=== PATIENT | female | born 1935 | race Caucasian/White ===

== ENCOUNTER 2018-05-19 18:01 | Inpatient (IN) | payer OTHER, MEDICAID ==
[~2018-05-19] VITALS: Ht 167.6 cm; Wt 60.8 kg
[2018-05-19] MEDS ORDERED: NACL 0.9% 1,000 ML IV ONE (18:03)
[2018-05-19 18:10] VITALS: BP_SYST 146
[2018-05-19 18:43] LABS: BASOPHILS % (AUTO) 0.7 % (0.0-2.0); EOSINOPHILS # (AUTO) 0.1 K/uL (0.0-0.4); EOSINOPHILS % (AUTO) 1.3 % (0.0-4.0); HEMATOCRIT 36.5 % (36-48); HEMOGLOBIN 11.9 g/dL (12.0-16.0); LYMPHOCYTES # (AUTO) 1.7 K/uL (1.0-5.5); LYMPHOCYTES % (AUTO) 28.2 % (20.5-51.5); MEAN CORPUSCULAR HEMOGLOBIN 28 pg (27-31); MEAN CORPUSCULAR HGB CONC 33 % (32-36); MEAN CORPUSCULAR VOLUME 85 fL (79.0-98.0); MONOCYTES # (AUTO) 0.6 K/uL (0.0-1.0); MONOCYTES % (AUTO) 9.4 % (1.7-9.3); NEUTROPHILS # (AUTO) 3.7 K/uL (1.8-7.7); NEUTROPHILS % (AUTO) 60.4 % (40.0-70.0); PLATELET COUNT (AUTO) 244 K/uL (130-430); RED CELL DISTRIBUTION WIDTH 15.7 % (9.0-15.0); WHITE BLOOD COUNT (AUTO) 6.2 K/uL (4.8-10.8)
[2018-05-19 18:53] LABS: PROTHROMBIN TIME 9.9 SECS (9.5-12.5)
[2018-05-19 19:12] LABS: ANION GAP 6 (5-15); CALCIUM 9.1 mg/dL (8.4-11.0); CHLORIDE 104 mmol/L (98-107); CREATININE 1.97 mg/dL (0.55-1.30); GLUCOSE 113 mg/dL (70-99); POTASSIUM 4.6 mmol/L (3.5-5.1); SODIUM SERUM 137 mmol/L (136-145); UREA NITROGEN, BLOOD 39 mg/dL (8-21)
[2018-05-19 19:18] LABS: ALANINE AMINOTRANSFERASE 17 U/L (12-78); ALBUMIN 3.3 g/dL (3.4-4.8); AMYLASE 143 U/L (0-100); ASPARTATE AMINOTRANSFERASE 14 U/L (10-37); LIPASE 288 U/L (73-393); TOTAL BILIRUBIN 0.5 mg/dL (0.0-1.0)
[2018-05-19 19:25] LABS: BILIRUBIN,URINE NEGATIVE (NEGATIVE); BLOOD, URINE NEGATIVE (NEGATIVE); CLARITY/URINE CLEAR (CLEAR); COLOR,URINE YELLOW (YELLOW); GLUCOSE,URINE NEGATIVE (NEGATIVE); KETONES,URINE NEGATIVE (NEGATIVE); NITRITE, URINE POSITIVE (NEGATIVE); PH,URINE 5.5 (5.0-8.0); PROTEIN URINE NEGATIVE (NEGATIVE); UROBILINOGEN,URINE 0.2 (0.2-1.0)
[2018-05-19 19:32] LABS: LEUKOCYTE ESTERASE ,URINE TRACE (NEGATIVE)
[2018-05-19 19:33] LABS: BACTERIA,URINE MODERATE /HPF (None Seen); RBC,URINE NONE SEEN /HPF (0-3)
[2018-05-19 19:34] LABS: MUCUS,URINE None Seen /LPF (None Seen)
[2018-05-19] MEDS ORDERED: LEVOFLOXACIN 500 MG/D5W 100 ML IV ONE (19:45)
[2018-05-19] MEDS ORDERED: QUET25TA34 PO (20:55)
[2018-05-19] MEDS ORDERED: MEMA5TAB15 PO (20:55)
[2018-05-19] MEDS ORDERED: MULT-262 PO (20:55)
[2018-05-19] MEDS ORDERED: LISI10TA PO (20:55)
[2018-05-19] MEDS ORDERED: REM15 PO (20:55)
[2018-05-19] MEDS ORDERED: ACETAMINOPHEN 325 MG TABLET PO PRN (21:30)
[2018-05-19] MEDS ORDERED: TEMAZEPAM 15 MG CAPSULE PO PRN (21:30)
[2018-05-19 22:00] VITALS: BP_SYST 152
[2018-05-20 00:46] VITALS: BP_SYST 153
[2018-05-20] MEDS: D5/0.45 NS 1,000 ML IV SCH ×2 (04:50→12:05)
[2018-05-20 07:34] LABS: ALANINE AMINOTRANSFERASE 13 U/L (12-78); ALBUMIN 2.6 g/dL (3.4-4.8); ANION GAP 6 (5-15); ASPARTATE AMINOTRANSFERASE 13 U/L (10-37); CALCIUM 8.7 mg/dL (8.4-11.0); CHLORIDE 108 mmol/L (98-107); CREATININE 1.45 mg/dL (0.55-1.30); GLUCOSE 86 mg/dL (70-99); POTASSIUM 4.1 mmol/L (3.5-5.1); SODIUM SERUM 139 mmol/L (136-145); TOTAL BILIRUBIN 0.6 mg/dL (0.0-1.0); UREA NITROGEN, BLOOD 32 mg/dL (8-21)
[2018-05-20 08:40] VITALS: BP_SYST 119
[2018-05-20] MEDS ORDERED: MEMANTINE HCL 5 MG TABLET PO SCH (09:00)
[2018-05-20] MEDS ORDERED: LISINOPRIL 10 MG TABLET (PRINIVIL) PO SCH (09:00)
[2018-05-20] MEDS ORDERED: MULTIVITAMINS TAB 1 TABLET PO SCH (09:00)
[2018-05-20 09:34] LABS: HEMATOCRIT 32.3 % (36-48); HEMOGLOBIN 10.7 g/dL (12.0-16.0); MEAN CORPUSCULAR HEMOGLOBIN 28 pg (27-31); MEAN CORPUSCULAR HGB CONC 33 % (32-36); MEAN CORPUSCULAR VOLUME 84 fL (79.0-98.0); RED BLOOD CELL COUNT(AUTO) 3.85 MIL/uL (4.2-6.2); WHITE BLOOD COUNT (AUTO) 5.3 K/uL (4.8-10.8)
[2018-05-20 09:35] LABS: BASOPHILS % (AUTO) 0.8 % (0.0-2.0); EOSINOPHILS # (AUTO) 0.1 K/uL (0.0-0.4); EOSINOPHILS % (AUTO) 2.8 % (0.0-4.0); LYMPHOCYTES # (AUTO) 1.7 K/uL (1.0-5.5); LYMPHOCYTES % (AUTO) 31.1 % (20.5-51.5); MONOCYTES # (AUTO) 0.5 K/uL (0.0-1.0); NEUTROPHILS # (AUTO) 2.9 K/uL (1.8-7.7); NEUTROPHILS % (AUTO) 55.3 % (40.0-70.0); PLATELET COUNT (AUTO) 234 K/uL (130-430); RED CELL DISTRIBUTION WIDTH 15.3 % (9.0-15.0)
[2018-05-20 11:27] VITALS: BP_SYST 129
[2018-05-20 13:58] VITALS: BP_SYST 129
[2018-05-20] MEDS ORDERED: QUEtiapine FUMARATE 25 MG TABLET PO SCH (21:00)
[2018-05-20] MEDS ORDERED: MIRTAZAPINE 15 MG TABLET PO SCH (21:00)
[2018-05-21] MEDS ORDERED: LEVOFLOXACIN 500 MG/D5W 100 ML IV SCH (20:00)
== END 2018-05-20 16:45 | disposition home or self-care (01) | DRG 682 ==
LOC: SED 18:01 → SMU 21:29
PROVIDERS: ADMIT Family Medicine; ATTEND Family Medicine
DX: N17.9 Acute kidney failure, unspecified (principal); G92 Toxic encephalopathy; N39.0 Urinary tract infection, site not specified; R55 Syncope and collapse; F02.80 Dementia in other diseases classified elsewhere, unspecified severity, without behavioral disturbance, psychotic disturbance, mood disturbance, and anxiety; G30.9 Alzheimer's disease, unspecified; I12.9 Hypertensive chronic kidney disease with stage 1 through stage 4 chronic kidney disease, or unspecified chronic kidney disease; N18.9 Chronic kidney disease, unspecified; R32 Unspecified urinary incontinence; Z88.0 Allergy status to penicillin; Z88.6 Allergy status to analgesic agent
CPT/HCPCS: 36415; 70450-TC; 71045; 80053; 81000-TC; 82150-TC; 82550-TC; 83605; 83690-TC; 84484; 85025; 85610-TC; 85730-TC; 86710; 87040-TC; 87086; 93005; 93880; 96361; 96365; 99285; J1956

== ENCOUNTER 2018-12-15 19:06 | Emergency (ER) | payer OTHER, MEDICAID ==
[~2018-12-15] VITALS: Ht 167.6 cm; Wt 65.8 kg
[~2018-12-15 19:06] MED LIST: LISI10TA PO; MEMA5TAB15 PO; MULT-262 PO; QUET25TA34 PO; REM15 PO
[2018-12-15 19:40] VITALS: BP_SYST 143
[2018-12-15 20:39] LABS: BASOPHILS % (AUTO) 0.4 % (0.0-2.0); EOSINOPHILS # (AUTO) 0.1 K/uL (0.0-0.4); EOSINOPHILS % (AUTO) 1.4 % (0.0-4.0); HEMATOCRIT 38.3 % (36-48); HEMOGLOBIN 12.8 g/dL (12.0-16.0); LYMPHOCYTES # (AUTO) 1.6 K/uL (1.0-5.5); LYMPHOCYTES % (AUTO) 20.1 % (20.5-51.5); MEAN CORPUSCULAR HEMOGLOBIN 29 pg (27-31); MEAN CORPUSCULAR HGB CONC 33 % (32-36); MEAN CORPUSCULAR VOLUME 86 fL (79.0-98.0); MONOCYTES # (AUTO) 0.5 K/uL (0.0-1.0); MONOCYTES % (AUTO) 6.7 % (1.7-9.3); NEUTROPHILS # (AUTO) 5.7 K/uL (1.8-7.7); NEUTROPHILS % (AUTO) 71.4 % (40.0-70.0); PLATELET COUNT (AUTO) 248 K/uL (130-430); RED BLOOD CELL COUNT(AUTO) 4.45 MIL/uL (4.2-6.2); RED CELL DISTRIBUTION WIDTH 15.2 % (9.0-15.0); WHITE BLOOD COUNT (AUTO) 7.9 K/uL (4.8-10.8)
[2018-12-15 20:44] LABS: CALCIUM 9.9 mg/dL (8.4-11.0); GLUCOSE 122 mg/dL (70-99); UREA NITROGEN, BLOOD 57 mg/dL (8-21)
[2018-12-15 20:45] LABS: PROTHROMBIN TIME 10.3 SECS (9.5-12.5)
[2018-12-15 20:53] LABS: ANION GAP 8 (5-15); CHLORIDE 105 mmol/L (98-107); SODIUM SERUM 138 mmol/L (136-145)
[2018-12-15 21:00] LABS: ALANINE AMINOTRANSFERASE 13 U/L (12-78); ALBUMIN 3.4 g/dL (3.4-4.8); ASPARTATE AMINOTRANSFERASE 16 U/L (10-37); FREE T4 (FREE THYROXINE) 1.2 ng/dl (0.8-1.5); TOTAL BILIRUBIN 0.7 mg/dL (0.0-1.0)
[2018-12-15 21:01] LABS: ALCOHOL, BLOOD < 3 mg/dL (<10)
[2018-12-15 22:58] LABS: BILIRUBIN,URINE NEGATIVE (NEGATIVE); BLOOD, URINE NEGATIVE (NEGATIVE); CLARITY/URINE CLEAR (CLEAR); COLOR,URINE YELLOW (YELLOW); GLUCOSE,URINE NEGATIVE (NEGATIVE); KETONES,URINE NEGATIVE (NEGATIVE); LEUKOCYTE ESTERASE ,URINE NEGATIVE (NEGATIVE); NITRITE, URINE NEGATIVE (NEGATIVE); PH,URINE 5.5 (5.0-8.0); PROTEIN URINE NEGATIVE (NEGATIVE); UROBILINOGEN,URINE 0.2 (0.2-1.0)
[2018-12-15 23:07] LABS: BARBITURATE, URINE NEGATIVE (NEG <=200); BENZODIAZEPINE, URINE NEGATIVE (NEG <=150); CANNABINOID, URINE NEGATIVE (NEG <=50); COCAINE, URINE NEGATIVE (NEG <=150); METHAMPHETAMINES SCREEN,URINE NEGATIVE (NEG <=500); OPIATE, URINE NEGATIVE (NEG <=100); PHENCYCLIDINE SCREEN,URINE NEGATIVE (NEG <=25); UR TRICYCLIC ANTIDEPRESSANTS POSITIVE (NEG <=300); URINE AMPHETAMINE NEGATIVE (NEG <=500); URINE METHADONE NEGATIVE (NEG <=200); URINE OXYCODONE SCREEN NEGATIVE (NEG <=100); URINE PROPOXYPHENE SCREEN NEGATIVE (NEG <=300)
[2018-12-15 23:57] VITALS: BP_SYST 143
== END 2018-12-15 23:57 | disposition home or self-care (01) ==
LOC: SED 19:06
DX: I12.9 Hypertensive chronic kidney disease with stage 1 through stage 4 chronic kidney disease, or unspecified chronic kidney disease (principal); N18.9 Chronic kidney disease, unspecified; Z79.899 Other long term (current) drug therapy; Z88.0 Allergy status to penicillin
CPT/HCPCS: 36415; 80053; 80307; 81003; 82550; 83605; 83880; 84439; 84443; 84484; 85025; 85610; 85730; 87040; 87086; 93005; 99284; G0482

== ENCOUNTER 2018-12-25 17:46 | Inpatient (IN) | payer OTHER, MEDICAID ==
[~2018-12-25] VITALS: Ht 165.1 cm; Wt 63.5 kg
[2018-12-25 17:52] VITALS: BP_SYST 153
[2018-12-25] MEDS ORDERED: NS 500 ML IV ONE (18:00)
[2018-12-25 19:00] LABS: BASOPHILS % (AUTO) 0.8 % (0.0-2.0); EOSINOPHILS # (AUTO) 0.2 K/uL (0.0-0.4); EOSINOPHILS % (AUTO) 2.7 % (0.0-4.0); HEMATOCRIT 36.6 % (36-48); HEMOGLOBIN 12.1 g/dL (12.0-16.0); LYMPHOCYTES # (AUTO) 1.8 K/uL (1.0-5.5); LYMPHOCYTES % (AUTO) 28.4 % (20.5-51.5); MEAN CORPUSCULAR HEMOGLOBIN 29 pg (27-31); MEAN CORPUSCULAR HGB CONC 33 % (32-36); MEAN CORPUSCULAR VOLUME 86 fL (79.0-98.0); MONOCYTES # (AUTO) 0.4 K/uL (0.0-1.0); MONOCYTES % (AUTO) 6.8 % (1.7-9.3); NEUTROPHILS # (AUTO) 3.8 K/uL (1.8-7.7); NEUTROPHILS % (AUTO) 61.3 % (40.0-70.0); PLATELET COUNT (AUTO) 226 K/uL (130-430); RED BLOOD CELL COUNT(AUTO) 4.27 MIL/uL (4.2-6.2); RED CELL DISTRIBUTION WIDTH 15.1 % (9.0-15.0); WHITE BLOOD COUNT (AUTO) 6.2 K/uL (4.8-10.8)
[2018-12-25 19:27] LABS: ALANINE AMINOTRANSFERASE 12 U/L (12-78); ALBUMIN 3.1 g/dL (3.4-4.8); ANION GAP 5 (5-15); ASPARTATE AMINOTRANSFERASE 15 U/L (10-37); CALCIUM 9.2 mg/dL (8.4-11.0); CHLORIDE 103 mmol/L (98-107); CREATININE 1.89 mg/dL (0.55-1.30); GLUCOSE 102 mg/dL (70-99); POTASSIUM 4.2 mmol/L (3.5-5.1); SODIUM SERUM 135 mmol/L (136-145); TOTAL BILIRUBIN 0.5 mg/dL (0.0-1.0); UREA NITROGEN, BLOOD 43 mg/dL (8-21)
[2018-12-25 20:00] LABS: BILIRUBIN,URINE NEGATIVE (NEGATIVE); CLARITY/URINE CLEAR (CLEAR); COLOR,URINE YELLOW (YELLOW); GLUCOSE,URINE NEGATIVE (NEGATIVE); KETONES,URINE NEGATIVE (NEGATIVE); LEUKOCYTE ESTERASE ,URINE 2+ (NEGATIVE); NITRITE, URINE NEGATIVE (NEGATIVE); PH,URINE 6.5 (5.0-8.0); PROTEIN URINE NEGATIVE (NEGATIVE); UROBILINOGEN,URINE 0.2 (0.2-1.0)
[2018-12-25 20:05] LABS: BLOOD, URINE TRACE (NEGATIVE)
[2018-12-25 20:15] LABS: BACTERIA,URINE FEW /HPF (None Seen); RBC,URINE 0-3 /HPF (0-3)
[2018-12-25 20:16] LABS: MUCUS,URINE 1+ /LPF (None Seen)
[2018-12-25] MEDS ORDERED: NITROFURANTOIN MONOHYD/M-CRYST 100 MG CAPSULE PO ONE (20:30)
[2018-12-25] MEDS ORDERED: LOSA1TAB37 PO (20:53)
[2018-12-25] MEDS ORDERED: ACET325C6 PO (20:53)
[2018-12-25] MEDS ORDERED: TRAM-350 PO (20:53)
[2018-12-25] MEDS ORDERED: cloNIDine HCL 0.1 MG TABLET PO PRN (22:00)
[2018-12-25] MEDS ORDERED: QUEtiapine FUMARATE 25 MG TABLET PO ONE (22:00)
[2018-12-25 22:17] VITALS: BP_SYST 183
[2018-12-25] MEDS: NACL 0.9% 1,000 ML IV SCH (22:19)
[2018-12-25] MEDS: QUEtiapine FUMARATE 25 MG TABLET PO SCH (22:43)
[2018-12-26 03:42] VITALS: BP_SYST 137
[2018-12-26 05:56] LABS: ALANINE AMINOTRANSFERASE 18 U/L (12-78); ALBUMIN 2.8 g/dL (3.4-4.8); ASPARTATE AMINOTRANSFERASE 12 U/L (10-37); CALCIUM 8.6 mg/dL (8.4-11.0); CHLORIDE 108 mmol/L (98-107); CHOLESTEROL 183 mg/dL (<200); CREATININE 1.84 mg/dL (0.55-1.30); GLUCOSE 95 mg/dL (70-99); HDL CHOLESTEROL 48 mg/dL (>55); LDL CHOLESTEROL 116 mg/dL (<100); PHOSPHORUS 3.8 mg/dL (2.7-4.5); SODIUM SERUM 137 mmol/L (136-145); THYROID STIMULATING HORMONE 0.26 uIu/mL (0.34-4.82); TOTAL BILIRUBIN 0.6 mg/dL (0.0-1.0); TRIGLYCERIDES 56 mg/dL (30-150); UREA NITROGEN, BLOOD 39 mg/dL (8-21)
[2018-12-26 06:15] LABS: BASOPHILS # (AUTO) 0.1 K/uL (0.0-0.2); BASOPHILS % (AUTO) 0.8 % (0.0-2.0); EOSINOPHILS # (AUTO) 0.1 K/uL (0.0-0.4); HEMATOCRIT 31.4 % (36-48); HEMOGLOBIN 10.5 g/dL (12.0-16.0); LYMPHOCYTES # (AUTO) 1.9 K/uL (1.0-5.5); LYMPHOCYTES % (AUTO) 28.3 % (20.5-51.5); MEAN CORPUSCULAR HEMOGLOBIN 29 pg (27-31); MEAN CORPUSCULAR HGB CONC 34 % (32-36); MEAN CORPUSCULAR VOLUME 86 fL (79.0-98.0); MONOCYTES # (AUTO) 0.6 K/uL (0.0-1.0); MONOCYTES % (AUTO) 8.3 % (1.7-9.3); NEUTROPHILS # (AUTO) 4.1 K/uL (1.8-7.7); NEUTROPHILS % (AUTO) 60.6 % (40.0-70.0); PLATELET COUNT (AUTO) 199 K/uL (130-430); RED BLOOD CELL COUNT(AUTO) 3.64 MIL/uL (4.2-6.2); RED CELL DISTRIBUTION WIDTH 14.9 % (9.0-15.0); WHITE BLOOD COUNT (AUTO) 6.8 K/uL (4.8-10.8)
[2018-12-26 06:19] LABS: ANION GAP < 3 (5-15); FREE T4 (FREE THYROXINE) 1.4 ng/dL (0.6-1.6)
[2018-12-26] MEDS ORDERED: ACETAMINOPHEN 500 MG TABLET PO PRN (08:00)
[2018-12-26 08:15] VITALS: BP_SYST 131
[2018-12-26] MEDS: amLODIPine BESYLATE 5 MG TABLET PO SCH (09:43)
[2018-12-26] MEDS: LEVOFLOXACIN 250 MG/D5W 50 ML IV SCH (09:43)
[2018-12-26 11:46] LABS: TOTAL IRON BIND. CAPACITY 189 ug/dL (250-450)
[2018-12-26 12:38] VITALS: BP_SYST 115
[2018-12-26 14:59] VITALS: BP_SYST 93
[2018-12-26] MEDS: QUEtiapine FUMARATE 25 MG TABLET PO SCH (17:50)
[2018-12-26] MEDS: NACL 0.9% 1,000 ML IV SCH (20:37)
[2018-12-26 20:38] VITALS: BP_SYST 142
[2018-12-27 00:40] VITALS: BP_SYST 137
[2018-12-27] MEDS: NACL 0.9% 1,000 ML IV SCH (01:09)
[2018-12-27 07:19] LABS: BASOPHILS % (AUTO) 0.6 % (0.0-2.0); EOSINOPHILS # (AUTO) 0.2 K/uL (0.0-0.4); EOSINOPHILS % (AUTO) 2.9 % (0.0-4.0); HEMATOCRIT 34.2 % (36-48); HEMOGLOBIN 11.3 g/dL (12.0-16.0); LYMPHOCYTES # (AUTO) 1.6 K/uL (1.0-5.5); LYMPHOCYTES % (AUTO) 24.4 % (20.5-51.5); MEAN CORPUSCULAR HEMOGLOBIN 28 pg (27-31); MEAN CORPUSCULAR HGB CONC 33 % (32-36); MEAN CORPUSCULAR VOLUME 86 fL (79.0-98.0); MONOCYTES # (AUTO) 0.6 K/uL (0.0-1.0); MONOCYTES % (AUTO) 9.2 % (1.7-9.3); NEUTROPHILS # (AUTO) 4.1 K/uL (1.8-7.7); NEUTROPHILS % (AUTO) 62.9 % (40.0-70.0); PLATELET COUNT (AUTO) 206 K/uL (130-430); RED BLOOD CELL COUNT(AUTO) 3.98 MIL/uL (4.2-6.2); WHITE BLOOD COUNT (AUTO) 6.5 K/uL (4.8-10.8)
[2018-12-27 07:37] LABS: ANION GAP 8 (5-15); CALCIUM 9.1 mg/dL (8.4-11.0); CHLORIDE 109 mmol/L (98-107); CREATININE 1.88 mg/dL (0.55-1.30); GLUCOSE 87 mg/dL (70-99); POTASSIUM 4.6 mmol/L (3.5-5.1); SODIUM SERUM 141 mmol/L (136-145); UREA NITROGEN, BLOOD 35 mg/dL (8-21)
[2018-12-27 08:00] VITALS: BP_SYST 143
[2018-12-27] MEDS: amLODIPine BESYLATE 5 MG TABLET PO SCH (08:21)
[2018-12-27] MEDS: LEVOFLOXACIN 250 MG/D5W 50 ML IV SCH (09:00)
[2018-12-27] MEDS ORDERED: AMLO5TAB4 PO (09:55)
[2018-12-27 10:15] VITALS: BP_SYST 143
[2018-12-27 11:57] LABS: FOLATE (FOLIC ACID) >20.0 ng/mL (>3.0)
== END 2018-12-27 10:48 | disposition home health service (06) | DRG 640 ==
LOC: SED 17:46 → STU 20:54 → SMU 12-26 12:40
PROVIDERS: ADMIT Internal Medicine; ATTEND Internal Medicine
DX: E86.0 Dehydration (principal); N17.0 Acute kidney failure with tubular necrosis; N39.0 Urinary tract infection, site not specified; F03.90 Unspecified dementia, unspecified severity, without behavioral disturbance, psychotic disturbance, mood disturbance, and anxiety; I10 Essential (primary) hypertension; Z79.899 Other long term (current) drug therapy; Z88.0 Allergy status to penicillin
CPT/HCPCS: 36415; 70450-TC; 71045; 76770; 80048; 80053; 80061; 81000-TC; 82607; 82746; 83540-TC; 83550-TC; 83605; 84100-TC; 84439; 84443-TC; 84484; 85025; 85610-TC; 85730-TC; 87040-TC; 87086; 93005; 93306; 93880; 95816; 96361; 96365; 96375; 97116-GP; 97530-GP; 99285; G0378; J1956; J7030

== ENCOUNTER 2020-01-19 18:23 | Emergency (ER) | payer OTHER, MEDICAID ==
[~2020-01-19] VITALS: Ht 162.6 cm; Wt 61.2 kg
[~2020-01-19 18:23] MED LIST changes: +ACET325C6 PO; +AMLO5TAB4 PO; -LISI10TA PO; -MEMA5TAB15 PO; +MEMA5TAB42 PO; -REM15 PO
[2020-01-19 18:32] VITALS: BP_SYST 145
[2020-01-19] MEDS ORDERED: HYDROcodone/ACETAMIN 5-325 MG TAB (NORCO/ VICODIN) PO ONE (19:00)
[2020-01-19 21:18] VITALS: BP_SYST 130
== END 2020-01-19 21:18 | disposition home or self-care (01) ==
LOC: SED 18:23
DX: M54.5 Low back pain (principal); I10 Essential (primary) hypertension; Z79.899 Other long term (current) drug therapy; Z88.0 Allergy status to penicillin
CPT/HCPCS: 72100-TC; 99283

== ENCOUNTER 2020-04-12 12:34 | Inpatient (IN) | payer OTHER, MEDICAID, SELFPAY ==
[~2020-04-12] VITALS: Ht 160 cm; Wt 59.9 kg
[2020-04-12 12:53] VITALS: BP_SYST 177
[2020-04-12] MEDS ORDERED: MORPHINE 4 MG/ML INJ. SYRINGE ONE (12:57)
[2020-04-12] MEDS ORDERED: KETOROLAC TROMETHAMINE 30 MG VIAL ONE (12:58)
[2020-04-12] MEDS ORDERED: KETOROLAC TROMETHAMINE 30 MG VIAL IVP ONE (13:00)
[2020-04-12] MEDS ORDERED: MORPHINE 4 MG/ML INJ. SYRINGE IVP ONE (13:00)
[2020-04-12 13:20] LABS: BASOPHILS # (AUTO) 0.1 K/uL (0.0-0.2); BASOPHILS % (AUTO) 1.2 % (0.0-2.0); EOSINOPHILS # (AUTO) 0.2 K/uL (0.0-0.4); EOSINOPHILS % (AUTO) 3.2 % (0.0-4.0); HEMATOCRIT 35.9 % (36-48); HEMOGLOBIN 11.9 g/dL (12.0-16.0); LYMPHOCYTES # (AUTO) 1.8 K/uL (1.0-5.5); LYMPHOCYTES % (AUTO) 28.8 % (20.5-51.5); MEAN CORPUSCULAR HEMOGLOBIN 28 pg (27-31); MEAN CORPUSCULAR HGB CONC 33 % (32-36); MEAN CORPUSCULAR VOLUME 83 fL (79.0-98.0); MONOCYTES # (AUTO) 0.7 K/uL (0.0-1.0); NEUTROPHILS # (AUTO) 3.4 K/uL (1.8-7.7); NEUTROPHILS % (AUTO) 55.8 % (40.0-70.0); PLATELET COUNT (AUTO) 216 K/uL (130-430); RED BLOOD CELL COUNT(AUTO) 4.31 MIL/uL (4.2-6.2); RED CELL DISTRIBUTION WIDTH 16.4 % (9.0-15.0); WHITE BLOOD COUNT (AUTO) 6.1 K/uL (4.8-10.8)
[2020-04-12 13:26] LABS: ANION GAP 14 (5-15); CALCIUM 9.3 mg/dL (8.4-11.0); CHLORIDE 104 mmol/L (98-107); CREATININE 1.71 mg/dL (0.55-1.30); GLUCOSE 117 mg/dL (70-99); POTASSIUM 5.1 mmol/L (3.5-5.1); SODIUM SERUM 139 mmol/L (136-145); UREA NITROGEN, BLOOD 38 mg/dL (8-21)
[2020-04-12 13:32] LABS: ALANINE AMINOTRANSFERASE 26 U/L (12-78); ALBUMIN 3.5 g/dL (3.4-4.8); ASPARTATE AMINOTRANSFERASE 27 U/L (10-37); TOTAL BILIRUBIN 0.4 mg/dL (0.0-1.0)
[2020-04-12] MEDS ORDERED: KETAMINE 30 MG/3 ML SYRINGE ONE (13:57)
[2020-04-12] MEDS ORDERED: KETAMINE 30 MG/3 ML SYRINGE IVP ONE (14:00)
[2020-04-12 16:41] VITALS: BP_SYST 137
[2020-04-12] MEDS ORDERED: NALOXONE HCL 0.4 MG/ML AMP (NARCAN) IVP PRN (18:00)
[2020-04-12] MEDS ORDERED: ACETAMINOPHEN 325 MG TABLET PO PRN (18:00)
[2020-04-12] MEDS ORDERED: QUEtiapine FUMARATE 25 MG TABLET PO ONE (18:00)
[2020-04-12] MEDS ORDERED: ONDANSETRON HCL 4 MG/2 ML VIAL IVP PRN (18:15)
[2020-04-12 20:00] VITALS: BP_SYST 137
[2020-04-12] MEDS: MEMANTINE HCL 5 MG TABLET PO SCH (21:28)
[2020-04-13 00:17] VITALS: BP_SYST 115
[2020-04-13] MEDS: traMADol HCL HCL 50 MG TABLET (ULTRAM) PO PRN ×2 (03:35→09:52)
[2020-04-13] MEDS: D5/0.45 NS 1,000 ML IV SCH ×3 (03:36→13:59)
[2020-04-13] MEDS: MORPHINE 2 MG/ML INJ. SYRINGE IVP PRN (05:38)
[2020-04-13 07:17] LABS: BASOPHILS % (AUTO) 0.4 % (0.0-2.0); EOSINOPHILS # (AUTO) 0.1 K/uL (0.0-0.4); EOSINOPHILS % (AUTO) 1.6 % (0.0-4.0); HEMATOCRIT 25.8 % (36-48); HEMOGLOBIN 8.6 g/dL (12.0-16.0); LYMPHOCYTES # (AUTO) 0.9 K/uL (1.0-5.5); LYMPHOCYTES % (AUTO) 15.1 % (20.5-51.5); MEAN CORPUSCULAR HEMOGLOBIN 28 pg (27-31); MEAN CORPUSCULAR HGB CONC 33 % (32-36); MEAN CORPUSCULAR VOLUME 83 fL (79.0-98.0); MONOCYTES # (AUTO) 0.6 K/uL (0.0-1.0); MONOCYTES % (AUTO) 10.3 % (1.7-9.3); NEUTROPHILS # (AUTO) 4.3 K/uL (1.8-7.7); NEUTROPHILS % (AUTO) 72.6 % (40.0-70.0); PLATELET COUNT (AUTO) 162 K/uL (130-430); RED CELL DISTRIBUTION WIDTH 15.9 % (9.0-15.0); WHITE BLOOD COUNT (AUTO) 5.9 K/uL (4.8-10.8)
[2020-04-13 07:25] LABS: TOTAL IRON BIND. CAPACITY 192 ug/dL (250-450)
[2020-04-13 07:49] LABS: ALANINE AMINOTRANSFERASE 22 U/L (12-78); ALBUMIN 2.7 g/dL (3.4-4.8); ANION GAP 9 (5-15); ASPARTATE AMINOTRANSFERASE 19 U/L (10-37); CALCIUM 7.9 mg/dL (8.4-11.0); CHLORIDE 104 mmol/L (98-107); CREATININE 1.63 mg/dL (0.55-1.30); FREE T4 (FREE THYROXINE) 1.1 ng/dl (0.8-1.5); GLUCOSE 113 mg/dL (70-99); POTASSIUM 4.8 mmol/L (3.5-5.1); SODIUM SERUM 135 mmol/L (136-145); TOTAL BILIRUBIN 0.6 mg/dL (0.0-1.0); UREA NITROGEN, BLOOD 38 mg/dL (8-21)
[2020-04-13 08:00] VITALS: BP_SYST 128
[2020-04-13] MEDS: amLODIPine BESYLATE 5 MG TABLET PO SCH (09:50)
[2020-04-13] MEDS: MEMANTINE HCL 5 MG TABLET PO SCH ×2 (09:50→21:48)
[2020-04-13 12:10] LABS: BILIRUBIN,URINE NEGATIVE (NEGATIVE); BLOOD, URINE NEGATIVE (NEGATIVE); COLOR,URINE YELLOW (YELLOW); GLUCOSE,URINE NEGATIVE (NEGATIVE); KETONES,URINE NEGATIVE (NEGATIVE); LEUKOCYTE ESTERASE ,URINE NEGATIVE (NEGATIVE); NITRITE, URINE NEGATIVE (NEGATIVE); PH,URINE 5.5 (5.0-8.0); PROTEIN URINE NEGATIVE (NEGATIVE); UROBILINOGEN,URINE 0.2 (0.2-1.0)
[2020-04-13 12:12] LABS: CLARITY/URINE SLIGHTLY HAZY (CLEAR)
[2020-04-13 12:47] VITALS: BP_SYST 121
[2020-04-13 16:39] VITALS: BP_SYST 125
[2020-04-13] MEDS ORDERED: EPOETIN ALFA 4,000 UNITS/ML VIAL SUBCUT ONE (17:15)
[2020-04-13] MEDS ORDERED: CHOLECALCIFEROL (VITAMIN D3) 2,000 UNIT TABLET PO ONE (17:15)
[2020-04-13] MEDS: QUEtiapine FUMARATE 25 MG TABLET PO SCH (17:26)
[2020-04-13] MEDS: IRON SUCROSE COMPLEX 100 MG in NS 50 ML IV SCH (18:30)
[2020-04-13] MEDS: NACL 0.9% 1,000 ML IV SCH (18:33)
[2020-04-13 19:00] VITALS: BP_SYST 114
[2020-04-13] MEDS ORDERED: MAGNESIUM OXIDE 400 MG TABLET ONE (21:46)
[2020-04-13] MEDS: MAGNESIUM OXIDE 400 MG TABLET PO SCH (21:49)
[2020-04-13] MEDS: MULTIVITAMINS TAB 1 TABLET PO SCH (21:49)
[2020-04-14] MEDS: MORPHINE 2 MG/ML INJ. SYRINGE IVP PRN ×4 (01:46→21:23)
[2020-04-14 07:53] LABS: ANION GAP 5 (5-15); CALCIUM 8.4 mg/dL (8.4-11.0); CHLORIDE 106 mmol/L (98-107); CREATININE 1.61 mg/dL (0.55-1.30); GLUCOSE 86 mg/dL (70-99); POTASSIUM 4.7 mmol/L (3.5-5.1); SODIUM SERUM 136 mmol/L (136-145); UREA NITROGEN, BLOOD 34 mg/dL (8-21)
[2020-04-14 08:00] VITALS: BP_SYST 157
[2020-04-14 08:12] LABS: BASOPHILS % (AUTO) 0.6 % (0.0-2.0); EOSINOPHILS # (AUTO) 0.2 K/uL (0.0-0.4); EOSINOPHILS % (AUTO) 4.2 % (0.0-4.0); HEMATOCRIT 24.1 % (36-48); LYMPHOCYTES # (AUTO) 1.4 K/uL (1.0-5.5); LYMPHOCYTES % (AUTO) 24.6 % (20.5-51.5); MEAN CORPUSCULAR HEMOGLOBIN 28 pg (27-31); MEAN CORPUSCULAR HGB CONC 33 % (32-36); MEAN CORPUSCULAR VOLUME 84 fL (79.0-98.0); MONOCYTES # (AUTO) 0.7 K/uL (0.0-1.0); NEUTROPHILS # (AUTO) 3.3 K/uL (1.8-7.7); NEUTROPHILS % (AUTO) 58.6 % (40.0-70.0); PLATELET COUNT (AUTO) 152 K/uL (130-430); RED BLOOD CELL COUNT(AUTO) 2.87 MIL/uL (4.2-6.2); RED CELL DISTRIBUTION WIDTH 16.1 % (9.0-15.0); WHITE BLOOD COUNT (AUTO) 5.6 K/uL (4.8-10.8)
[2020-04-14] MEDS: NACL 0.9% 1,000 ML IV SCH ×2 (09:10→22:06)
[2020-04-14] MEDS: MULTIVITAMINS TAB 1 TABLET PO SCH ×2 (09:11→21:17)
[2020-04-14] MEDS: amLODIPine BESYLATE 5 MG TABLET PO SCH (09:11)
[2020-04-14] MEDS: MAGNESIUM OXIDE 400 MG TABLET PO SCH ×2 (09:11→21:00)
[2020-04-14] MEDS: MEMANTINE HCL 5 MG TABLET PO SCH ×2 (09:11→21:17)
[2020-04-14] MEDS: CHOLECALCIFEROL (VITAMIN D3) 2,000 UNIT TABLET PO SCH (09:11)
[2020-04-14 12:34] VITALS: BP_SYST 100
[2020-04-14 16:58] VITALS: BP_SYST 149
[2020-04-14] MEDS: IRON SUCROSE COMPLEX 100 MG in NS 50 ML IV SCH (17:33)
[2020-04-14] MEDS: QUEtiapine FUMARATE 25 MG TABLET PO SCH (17:33)
[2020-04-15 01:09] VITALS: BP_SYST 151
[2020-04-15] MEDS: MORPHINE 2 MG/ML INJ. SYRINGE IVP PRN ×3 (05:59→21:50)
[2020-04-15 06:50] LABS: BASOPHILS % (AUTO) 0.8 % (0.0-2.0); EOSINOPHILS # (AUTO) 0.2 K/uL (0.0-0.4); EOSINOPHILS % (AUTO) 2.6 % (0.0-4.0); HEMATOCRIT 24.1 % (36-48); HEMOGLOBIN 8.1 g/dL (12.0-16.0); LYMPHOCYTES # (AUTO) 1.6 K/uL (1.0-5.5); LYMPHOCYTES % (AUTO) 25.7 % (20.5-51.5); MEAN CORPUSCULAR HEMOGLOBIN 28 pg (27-31); MEAN CORPUSCULAR HGB CONC 34 % (32-36); MEAN CORPUSCULAR VOLUME 83 fL (79.0-98.0); MONOCYTES # (AUTO) 0.8 K/uL (0.0-1.0); MONOCYTES % (AUTO) 12.3 % (1.7-9.3); NEUTROPHILS # (AUTO) 3.7 K/uL (1.8-7.7); NEUTROPHILS % (AUTO) 58.6 % (40.0-70.0); PLATELET COUNT (AUTO) 169 K/uL (130-430); RED BLOOD CELL COUNT(AUTO) 2.91 MIL/uL (4.2-6.2); RED CELL DISTRIBUTION WIDTH 15.7 % (9.0-15.0); WHITE BLOOD COUNT (AUTO) 6.2 K/uL (4.8-10.8)
[2020-04-15 07:48] LABS: ANION GAP 12 (5-15); CALCIUM 8.7 mg/dL (8.4-11.0); CHLORIDE 107 mmol/L (98-107); CREATININE 1.36 mg/dL (0.55-1.30); GLUCOSE 90 mg/dL (70-99); POTASSIUM 4.5 mmol/L (3.5-5.1); SODIUM SERUM 140 mmol/L (136-145); UREA NITROGEN, BLOOD 25 mg/dL (8-21)
[2020-04-15 08:00] VITALS: BP_SYST 153
[2020-04-15] MEDS: MULTIVITAMINS TAB 1 TABLET PO SCH ×2 (08:32→21:49)
[2020-04-15] MEDS: MEMANTINE HCL 5 MG TABLET PO SCH ×2 (08:32→21:49)
[2020-04-15] MEDS: CHOLECALCIFEROL (VITAMIN D3) 2,000 UNIT TABLET PO SCH (08:32)
[2020-04-15] MEDS: amLODIPine BESYLATE 5 MG TABLET PO SCH (08:47)
[2020-04-15] MEDS: MAGNESIUM OXIDE 400 MG TABLET PO SCH ×2 (09:01→21:00)
[2020-04-15] MEDS: NACL 0.9% 1,000 ML IV SCH (12:00)
[2020-04-15 12:14] VITALS: BP_SYST 146
[2020-04-15] MEDS: traMADol HCL HCL 50 MG TABLET (ULTRAM) PO PRN (12:30)
[2020-04-15 16:16] VITALS: BP_SYST 152
[2020-04-15] MEDS: IRON SUCROSE COMPLEX 100 MG in NS 50 ML IV SCH (17:15)
[2020-04-15] MEDS: QUEtiapine FUMARATE 25 MG TABLET PO SCH (17:36)
[2020-04-15 23:01] LABS: BILIRUBIN,URINE NEGATIVE (NEGATIVE); BLOOD, URINE 2+ (NEGATIVE); CLARITY/URINE SL CLOUDY (CLEAR); COLOR,URINE YELLOW (YELLOW); GLUCOSE,URINE NEGATIVE (NEGATIVE); KETONES,URINE 1+ (NEGATIVE); LEUKOCYTE ESTERASE ,URINE 3+ (NEGATIVE); NITRITE, URINE NEGATIVE (NEGATIVE); PH,URINE 5.5 (5.0-8.0); PROTEIN URINE NEGATIVE (NEGATIVE); UROBILINOGEN,URINE 0.2 (0.2-1.0)
[2020-04-15 23:06] LABS: BACTERIA,URINE FEW /HPF (None Seen); WBC,URINE 50-80 /HPF (0-3)
[2020-04-16 01:22] VITALS: BP_SYST 125
[2020-04-16] MEDS: NACL 0.9% 1,000 ML IV SCH ×2 (03:42→17:51)
[2020-04-16 07:38] LABS: BASOPHILS % (AUTO) 0.5 % (0.0-2.0); EOSINOPHILS # (AUTO) 0.2 K/uL (0.0-0.4); EOSINOPHILS % (AUTO) 3.6 % (0.0-4.0); HEMATOCRIT 23.3 % (36-48); HEMOGLOBIN 7.7 g/dL (12.0-16.0); LYMPHOCYTES # (AUTO) 1.4 K/uL (1.0-5.5); LYMPHOCYTES % (AUTO) 21.9 % (20.5-51.5); MEAN CORPUSCULAR HEMOGLOBIN 28 pg (27-31); MEAN CORPUSCULAR HGB CONC 33 % (32-36); MEAN CORPUSCULAR VOLUME 85 fL (79.0-98.0); MONOCYTES # (AUTO) 0.8 K/uL (0.0-1.0); MONOCYTES % (AUTO) 11.6 % (1.7-9.3); NEUTROPHILS # (AUTO) 4.1 K/uL (1.8-7.7); NEUTROPHILS % (AUTO) 62.4 % (40.0-70.0); PLATELET COUNT (AUTO) 174 K/uL (130-430); RED BLOOD CELL COUNT(AUTO) 2.76 MIL/uL (4.2-6.2); RED CELL DISTRIBUTION WIDTH 15.5 % (9.0-15.0); WHITE BLOOD COUNT (AUTO) 6.6 K/uL (4.8-10.8)
[2020-04-16 08:00] VITALS: BP_SYST 140
[2020-04-16 08:10] LABS: ANION GAP 10 (5-15); CALCIUM 8.5 mg/dL (8.4-11.0); CHLORIDE 109 mmol/L (98-107); CREATININE 1.22 mg/dL (0.55-1.30); GLUCOSE 81 mg/dL (70-99); POTASSIUM 4.7 mmol/L (3.5-5.1); SODIUM SERUM 138 mmol/L (136-145); UREA NITROGEN, BLOOD 24 mg/dL (8-21)
[2020-04-16] MEDS: MULTIVITAMINS TAB 1 TABLET PO SCH ×2 (09:52→21:40)
[2020-04-16] MEDS: CHOLECALCIFEROL (VITAMIN D3) 2,000 UNIT TABLET PO SCH (09:52)
[2020-04-16] MEDS: amLODIPine BESYLATE 5 MG TABLET PO SCH (09:52)
[2020-04-16] MEDS: MEMANTINE HCL 5 MG TABLET PO SCH ×2 (09:52→21:40)
[2020-04-16] MEDS: MAGNESIUM OXIDE 400 MG TABLET PO SCH ×2 (09:52→21:00)
[2020-04-16 16:50] VITALS: BP_SYST 118
[2020-04-16] MEDS ORDERED: EPOETIN ALFA 4,000 UNITS/ML VIAL SUBCUT ONE (17:15)
[2020-04-16] MEDS: IRON SUCROSE COMPLEX 100 MG in NS 50 ML IV SCH (18:18)
[2020-04-16] MEDS: QUEtiapine FUMARATE 25 MG TABLET PO SCH (18:28)
[2020-04-16 20:00] VITALS: BP_SYST 145
[2020-04-16] MEDS: traMADol HCL HCL 50 MG TABLET (ULTRAM) PO PRN (21:40)
[2020-04-16] MEDS: MORPHINE 2 MG/ML INJ. SYRINGE IVP PRN (23:05)
[2020-04-17 00:08] VITALS: BP_SYST 136
[2020-04-17 07:30] VITALS: BP_SYST 159
[2020-04-17 07:32] LABS: PROTHROMBIN TIME 10.3 SECS (9.5-12.5)
[2020-04-17] MEDS: CHOLECALCIFEROL (VITAMIN D3) 2,000 UNIT TABLET PO SCH (08:41)
[2020-04-17] MEDS: amLODIPine BESYLATE 5 MG TABLET PO SCH (08:41)
[2020-04-17] MEDS: MAGNESIUM OXIDE 400 MG TABLET PO SCH ×2 (08:41→21:00)
[2020-04-17] MEDS: MULTIVITAMINS TAB 1 TABLET PO SCH ×2 (08:41→20:55)
[2020-04-17] MEDS: MEMANTINE HCL 5 MG TABLET PO SCH ×2 (08:41→20:56)
[2020-04-17 08:51] LABS: HEMOGLOBIN 7.2 g/dL (12.0-16.0)
[2020-04-17 09:07] LABS: HEMATOCRIT 21.6 % (36-48)
[2020-04-17] MEDS ORDERED: METOCLOPRAMIDE HCL 10 MG/2 ML VIAL IVP PRN (14:00)
[2020-04-17] MEDS ORDERED: ONDANSETRON HCL 4 MG/2 ML VIAL IVP PRN (14:00)
[2020-04-17] MEDS ORDERED: HYDROmorphone 1 MG INJ. 1 MG/ML AMPUL IVP PRN ×2 (14:00)
[2020-04-17] MEDS ORDERED: LR 1,000 ML IV SCH (14:00)
[2020-04-17] MEDS: MORPHINE 2 MG/ML INJ. SYRINGE IVP PRN ×2 (15:00→21:04)
[2020-04-17 16:00] VITALS: BP_SYST 142
[2020-04-17] MEDS: QUEtiapine FUMARATE 25 MG TABLET PO SCH (18:00)
[2020-04-17] MEDS: NACL 0.9% 1,000 ML IV SCH ×2 (18:11→21:36)
[2020-04-17 20:00] VITALS: BP_SYST 147
[2020-04-18] VITALS: BP_SYST 120
[2020-04-18] MEDS: MORPHINE 2 MG/ML INJ. SYRINGE IVP PRN ×3 (04:33→16:32)
[2020-04-18 07:03] LABS: BASOPHILS % (AUTO) 0.6 % (0.0-2.0); EOSINOPHILS % (AUTO) 0.4 % (0.0-4.0); HEMOGLOBIN 8.7 g/dL (12.0-16.0); LYMPHOCYTES # (AUTO) 0.9 K/uL (1.0-5.5); MEAN CORPUSCULAR HEMOGLOBIN 29 pg (27-31); MEAN CORPUSCULAR HGB CONC 34 % (32-36); MEAN CORPUSCULAR VOLUME 86 fL (79.0-98.0); MONOCYTES # (AUTO) 1.2 K/uL (0.0-1.0); MONOCYTES % (AUTO) 13.8 % (1.7-9.3); NEUTROPHILS # (AUTO) 6.5 K/uL (1.8-7.7); NEUTROPHILS % (AUTO) 75.2 % (40.0-70.0); PLATELET COUNT (AUTO) 233 K/uL (130-430); RED BLOOD CELL COUNT(AUTO) 3.04 MIL/uL (4.2-6.2); WHITE BLOOD COUNT (AUTO) 8.6 K/uL (4.8-10.8)
[2020-04-18 07:35] LABS: ALANINE AMINOTRANSFERASE 27 U/L (12-78); ALBUMIN 2.3 g/dL (3.4-4.8); ANION GAP 11 (5-15); ASPARTATE AMINOTRANSFERASE 39 U/L (10-37); CALCIUM 7.6 mg/dL (8.4-11.0); CHLORIDE 106 mmol/L (98-107); CREATININE 1.22 mg/dL (0.55-1.30); GLUCOSE 103 mg/dL (70-99); POTASSIUM 4.1 mmol/L (3.5-5.1); SODIUM SERUM 137 mmol/L (136-145); TOTAL BILIRUBIN 1.6 mg/dL (0.0-1.0); UREA NITROGEN, BLOOD 17 mg/dL (8-21)
[2020-04-18] MEDS: MEMANTINE HCL 5 MG TABLET PO SCH ×2 (08:24→21:19)
[2020-04-18] MEDS: MULTIVITAMINS TAB 1 TABLET PO SCH ×2 (08:24→21:19)
[2020-04-18] MEDS: amLODIPine BESYLATE 5 MG TABLET PO SCH (08:26)
[2020-04-18] MEDS: NACL 0.9% 1,000 ML IV SCH ×2 (08:28→22:12)
[2020-04-18] MEDS: CHOLECALCIFEROL (VITAMIN D3) 2,000 UNIT TABLET PO SCH (08:40)
[2020-04-18] MEDS: MAGNESIUM OXIDE 400 MG TABLET PO SCH ×2 (10:04→21:00)
[2020-04-18 12:00] VITALS: BP_SYST 156
[2020-04-18] MEDS ORDERED: SOD FERRIC GLUC COMPLEX/SUC 125 MG in NS 100 ML IV SCH (14:45)
[2020-04-18] MEDS ORDERED: EPOETIN ALFA 4,000 UNITS/ML VIAL SUBCUT ONE (14:45)
[2020-04-18] MEDS ORDERED: CARVEDILOL 3.125 MG TABLET (COREG) PO ONE (15:45)
[2020-04-18] MEDS: IRON SUCROSE COMPLEX 100 MG in NS 50 ML IV SCH (16:24)
[2020-04-18 17:20] VITALS: BP_SYST 148
[2020-04-18] MEDS: QUEtiapine FUMARATE 25 MG TABLET PO SCH (18:24)
[2020-04-18 20:00] VITALS: BP_SYST 107
[2020-04-18] MEDS: CARVEDILOL 3.125 MG TABLET (COREG) PO SCH (21:00)
[2020-04-19] VITALS: BP_SYST 102
[2020-04-19 06:43] LABS: BASOPHILS % (AUTO) 0.5 % (0.0-2.0); EOSINOPHILS # (AUTO) 0.3 K/uL (0.0-0.4); EOSINOPHILS % (AUTO) 3.4 % (0.0-4.0); HEMATOCRIT 22.8 % (36-48); HEMOGLOBIN 7.8 g/dL (12.0-16.0); LYMPHOCYTES # (AUTO) 1.5 K/uL (1.0-5.5); LYMPHOCYTES % (AUTO) 17.5 % (20.5-51.5); MEAN CORPUSCULAR HEMOGLOBIN 29 pg (27-31); MEAN CORPUSCULAR HGB CONC 34 % (32-36); MEAN CORPUSCULAR VOLUME 86 fL (79.0-98.0); MONOCYTES # (AUTO) 1.3 K/uL (0.0-1.0); MONOCYTES % (AUTO) 15.1 % (1.7-9.3); NEUTROPHILS # (AUTO) 5.6 K/uL (1.8-7.7); NEUTROPHILS % (AUTO) 63.5 % (40.0-70.0); PLATELET COUNT (AUTO) 222 K/uL (130-430); RED BLOOD CELL COUNT(AUTO) 2.65 MIL/uL (4.2-6.2); RED CELL DISTRIBUTION WIDTH 15.7 % (9.0-15.0); WHITE BLOOD COUNT (AUTO) 8.8 K/uL (4.8-10.8)
[2020-04-19 07:29] LABS: ANION GAP 9 (5-15); CALCIUM 7.9 mg/dL (8.4-11.0); CHLORIDE 107 mmol/L (98-107); CREATININE 1.39 mg/dL (0.55-1.30); GLUCOSE 96 mg/dL (70-99); POTASSIUM 3.9 mmol/L (3.5-5.1); SODIUM SERUM 137 mmol/L (136-145); UREA NITROGEN, BLOOD 21 mg/dL (8-21)
[2020-04-19 08:00] VITALS: BP_SYST 131
[2020-04-19] MEDS: CARVEDILOL 3.125 MG TABLET (COREG) PO SCH ×2 (09:31→21:23)
[2020-04-19] MEDS: MULTIVITAMINS TAB 1 TABLET PO SCH ×2 (09:32→21:22)
[2020-04-19] MEDS: MEMANTINE HCL 5 MG TABLET PO SCH ×2 (09:32→21:22)
[2020-04-19] MEDS: CHOLECALCIFEROL (VITAMIN D3) 2,000 UNIT TABLET PO SCH (09:32)
[2020-04-19] MEDS: amLODIPine BESYLATE 5 MG TABLET PO SCH (09:32)
[2020-04-19] MEDS: MAGNESIUM OXIDE 400 MG TABLET PO SCH ×2 (09:42→21:22)
[2020-04-19] MEDS: MORPHINE 2 MG/ML INJ. SYRINGE IVP PRN ×2 (16:20→22:26)
[2020-04-19] MEDS: IRON SUCROSE COMPLEX 100 MG in NS 50 ML IV SCH (16:23)
[2020-04-19 16:27] VITALS: BP_SYST 136
[2020-04-19] MEDS: QUEtiapine FUMARATE 25 MG TABLET PO SCH (17:43)
[2020-04-19 20:00] VITALS: BP_SYST 132
[2020-04-20] VITALS: BP_SYST 119
[2020-04-20] MEDS: MORPHINE 2 MG/ML INJ. SYRINGE IVP PRN (04:57)
[2020-04-20] MEDS: NACL 0.9% 1,000 ML IV SCH (07:54)
[2020-04-20 08:00] VITALS: BP_SYST 151
[2020-04-20] MEDS: MAGNESIUM OXIDE 400 MG TABLET PO SCH (08:42)
[2020-04-20] MEDS: CHOLECALCIFEROL (VITAMIN D3) 2,000 UNIT TABLET PO SCH (08:42)
[2020-04-20] MEDS: MULTIVITAMINS TAB 1 TABLET PO SCH (08:42)
[2020-04-20] MEDS: CARVEDILOL 3.125 MG TABLET (COREG) PO SCH (08:42)
[2020-04-20] MEDS: MEMANTINE HCL 5 MG TABLET PO SCH (08:43)
[2020-04-20] MEDS: amLODIPine BESYLATE 5 MG TABLET PO SCH (08:43)
[2020-04-20] MEDS ORDERED: ENOXAPARIN SODIUM 40 MG/0.4 ML SYRINGE SUBCUT SCH (09:00)
[2020-04-20] MEDS ORDERED: SODIUM PHOSPHATE,MONO-DIBASIC 133 ML ENEMA RC ONE (12:15)
[2020-04-20 12:27] VITALS: BP_SYST 151
== END 2020-04-20 13:35 | DRG 480 ==
LOC: SED 12:34 → STU 15:36 → SMU 16:03
PROVIDERS: ADMIT Internal Medicine; ATTEND Internal Medicine
PROC: 0QS604Z Reposition Right Upper Femur with Internal Fixation Device, Open Approach (ICD-10-PCS; 2020-04-17)
PROC: 30233N1 Transfusion of Nonautologous Red Blood Cells into Peripheral Vein, Percutaneous Approach (ICD-10-PCS; 2020-04-17)
PROC: 0PSC04Z Reposition Right Humeral Head with Internal Fixation Device, Open Approach (ICD-10-PCS; principal; 2020-04-17 09:00)
DX: S42.351A Displaced comminuted fracture of shaft of humerus, right arm, initial encounter for closed fracture (principal); S72.001A Fracture of unspecified part of neck of right femur, initial encounter for closed fracture; N17.0 Acute kidney failure with tubular necrosis; E44.1 Mild protein-calorie malnutrition; D62 Acute posthemorrhagic anemia; F02.80 Dementia in other diseases classified elsewhere, unspecified severity, without behavioral disturbance, psychotic disturbance, mood disturbance, and anxiety; Z66 Do not resuscitate; E86.0 Dehydration; D50.9 Iron deficiency anemia, unspecified; M47.896 Other spondylosis, lumbar region; I70.90 Unspecified atherosclerosis; Z20.822 Contact with and (suspected) exposure to COVID-19; G30.9 Alzheimer's disease, unspecified; W19.XXXA Unspecified fall, initial encounter; I10 Essential (primary) hypertension; R32 Unspecified urinary incontinence; Z79.899 Other long term (current) drug therapy; Z87.891 Personal history of nicotine dependence; Z90.710 Acquired absence of both cervix and uterus; Y93.89 Activity, other specified; Y92.89 Other specified places as the place of occurrence of the external cause; Y99.8 Other external cause status; Z68.23 Body mass index [BMI] 23.0-23.9, adult
CPT/HCPCS: 36415; 71045; 72192-TC; 73060-TC; 73502; 76000; 76376; 76770; 80048; 80053; 81000-TC; 81003; 82607; 83540-TC; 83550-TC; 84439; 84443-TC; 85018-TC; 85025; 85044-TC; 85610-TC; 85730-TC; 86886; 86900; 86901; 86920; 87081; 87086; 93005; 94010; 96374; 96375; 97110-GP; 97163; 97530-GP; J0885; J1650; J1756; J1885; J2270; P9021

== ENCOUNTER 2022-07-15 14:59 | Emergency (ER) | payer OTHER, MEDICAID ==
[~2022-07-15] VITALS: Ht 160 cm; Wt 65.8 kg
[~2022-07-15 14:59] MED LIST changes: -ACET325C6 PO; -QUET25TA34 PO; +QUET25TA36 PO
[2022-07-15 15:00] VITALS: BP_SYST 141
--- NOTE | 2022-07-15 15:00 | NUR ---
BROUGHT IN BY [facility] AND PLACED IN BED #6, TRIAGED. REPORT GIVEN TO JAYDEN
[2022-07-15] MEDS ORDERED: IBUPROFEN 400 MG TABLET PO ONE (15:15)
--- NOTE | 2022-07-15 15:33 | NUR ---
PATIENT CAME AFTER [facility] HER IN THE FACILITY OUTSIDE COMPLAINING OF PAIN AT THE LEFT KNEE PATINT STABL VITALS SIGNS IN NOMAL LIMITS
[2022-07-15 16:02] LABS: ANION GAP 8 (5-15); CALCIUM 8.9 mg/dL (8.4-11.0); CHLORIDE 109 mmol/L (98-107); CREATININE 1.95 mg/dL (0.55-1.30); GLUCOSE 158 mg/dL (70-99); UREA NITROGEN, BLOOD 43 mg/dL (8-21)
[2022-07-15 16:04] LABS: BASOPHILS # (AUTO) 0.1 K/uL (0.0-0.2); BASOPHILS % (AUTO) 0.9 % (0.0-2.0); EOSINOPHILS # (AUTO) 0.1 K/uL (0.0-0.4); EOSINOPHILS % (AUTO) 1.9 % (0.0-4.0); HEMATOCRIT 37.2 % (36-48); HEMOGLOBIN 12.2 g/dL (12.0-16.0); LYMPHOCYTES # (AUTO) 1.3 K/uL (1.0-5.5); LYMPHOCYTES % (AUTO) 18.8 % (20.5-51.5); MEAN CORPUSCULAR HEMOGLOBIN 28 pg (27-31); MEAN CORPUSCULAR HGB CONC 33 % (32-36); MEAN CORPUSCULAR VOLUME 84 fL (79.0-98.0); MONOCYTES # (AUTO) 0.4 K/uL (0.0-1.0); MONOCYTES % (AUTO) 5.7 % (1.7-9.3); NEUTROPHILS # (AUTO) 4.9 K/uL (1.8-7.7); NEUTROPHILS % (AUTO) 72.7 % (40.0-70.0); PLATELET COUNT (AUTO) 219 K/uL (130-430); RED BLOOD CELL COUNT(AUTO) 4.43 MIL/uL (4.2-6.2); RED CELL DISTRIBUTION WIDTH 14.7 % (9.0-15.0); WHITE BLOOD COUNT (AUTO) 6.7 K/uL (4.8-10.8)
[2022-07-15 16:07] LABS: ALANINE AMINOTRANSFERASE 13 U/L (12-78); ASPARTATE AMINOTRANSFERASE 12 U/L (10-37); TOTAL BILIRUBIN 0.4 mg/dL (0.0-1.0)
[2022-07-15] MEDS ORDERED: NACL 0.9% 2,000 ML IV ONE (16:15)
--- NOTE | 2022-07-15 17:41 | NUR ---
PATIENT IS DC BACK TO [facility] PATIENT IS STABLE VITALS SIGNS IN NORMAL LIMITS GET THE TWO LITERS OF NS 0.9
--- NOTE | 2022-07-15 18:02 | NUR ---
PATIENT STABLE READY TO GO BACK TO [place] RETAIREMENT IV REMOVED WE WAITING FOR AMBULANCE TO PICK HER OUT
--- NOTE | 2022-07-15 20:09 | NUR ---
Report received from PATRICE servin for continuity of care. Patient checked and vital signs stable.
[2022-07-15 20:10] VITALS: BP_SYST 136
--- NOTE | 2022-07-15 20:32 | NUR ---
Patient given written and verbal discharge instructions and verbalizes understanding. ER MD discussed with patient the results and treatment provided. Patient in stable condition. ID arm band removed. IV catheter removed intact and dressing applied, no active bleeding. Patient educated on pain management and to follow up with PMD. Pain Scale . Opportunity for questions provided and answered. Medication side effect fact sheet provided.
--- NOTE | 2022-07-15 20:34 | NUR ---
nicho newton called regarding patient going back by ambulance.
== END 2022-07-15 20:30 | disposition home or self-care (01) ==
LOC: EDBD 14:59 → SED 14:59
DX: E86.0 Dehydration (principal); G31.84 Mild cognitive impairment of uncertain or unknown etiology; M25.561 Pain in right knee; I10 Essential (primary) hypertension; Z88.0 Allergy status to penicillin; Z79.899 Other long term (current) drug therapy
CPT/HCPCS: 99285; 96360; 80053; 85025; 36415; 93005; 73560; J7030